=== PATIENT | male | born 1960 | race Caucasian/White ===

== ENCOUNTER 2017-04-10 12:39 | Inpatient (IN) | payer OTHER, SELFPAY ==
[~2017-04-10] VITALS: Ht 167.6 cm; Wt 97.3 kg
[2017-04-10] MEDS ORDERED: SODIUM CHLORIDE FLUSH 10ML SYR IVF ONE (13:00)
[2017-04-10] MEDS ORDERED: SODIUM CHLORIDE 0.9% 1,000ML IVBOLUS ONE (13:00)
[2017-04-10] MEDS ORDERED: CLINDAMYCIN PMX 600MG/50ML 50 ML IV ONE (13:00)
[2017-04-10 13:27] LABS: ASPARTATE AMINO TRANSFERASE 10 U/L (15-37); BLOOD UREA NITROGEN 32 mg/dL (7-18)
[2017-04-10 13:34] LABS: DIFF TOTAL CELLS COUNTED 100 CELL DIFF
[2017-04-10 13:36] LABS: C-REACTIVE PROTEIN, QUANT > 19.00 mg/dL (0.02-0.49); VERIFY COUNTS? YES
[2017-04-10 13:37] LABS: MONOS WITH VACUOLES 1+
[2017-04-10] MEDS ORDERED: ENAL5TAB PO (13:51)
[2017-04-10] MEDS ORDERED: ASPI-496 PO (13:51)
[2017-04-10] MEDS ORDERED: METF500T4 PO (13:51)
[2017-04-10] MEDS ORDERED: CLINDAMYCIN PMX 600MG/50ML 50 ML ONE (14:06)
[2017-04-10] MEDS ORDERED: HYDROmorphone 1 MG/ML, 1ML ONE ×2 (14:13→15:18)
[2017-04-10] MEDS ORDERED: ONDANSETRON 2MG/ML, 2ML ONE (14:13)
[2017-04-10] MEDS: HYDROmorphone 1 MG/ML, 1ML IVPush PRN ×2 (14:56→15:21)
[2017-04-10] MEDS ORDERED: ONDANSETRON 2MG/ML, 2ML IVPush ONE (15:00)
[2017-04-10] MEDS ORDERED: VANCOMYCIN PER PHARMACY MC PRN (16:30)
[2017-04-10] MEDS ORDERED: VANCOMYCIN PMX 1GM/200ML 200 ML IV ONE (16:30)
[2017-04-10 16:43] VITALS: BP 144/82
[2017-04-10] MEDS ORDERED: GLUCAGON 1 MG IM PRN (17:00)
[2017-04-10] MEDS ORDERED: DEXTROSE 50%, 50ML SYRINGE IVPush PRN (17:00)
[2017-04-10] MEDS ORDERED: DEXTROSE 4 GM TAB.CHEW PO PRN (17:00)
[2017-04-10] MEDS ORDERED: PHARMACY MAY ADJ FOR RENAL FX MC PRN (17:00)
[2017-04-10] MEDS ORDERED: PHARMACOKINETIC MONITORING MC PRN (17:00)
[2017-04-10] MEDS ORDERED: ENALAPRILAT 1.25 MG/ML, 2ML IVPush PRN (17:00)
[2017-04-10] MEDS: PIPERACILLIN/TAZO 3.375 GM in SODIUM CHLORIDE 0.9% 50 ML IV SCH ×2 (17:11→23:35)
[2017-04-10] MEDS: SODIUM CHLORIDE 0.9% 1,000 ML IV SCH (17:15)
[2017-04-10] MEDS: ENOXAPARIN 40 MG/0.4 ML SQ SCH (17:15)
[2017-04-10] MEDS ORDERED: VANCOMYCIN 1,600 MG in SODIUM CHLORIDE 0.9% 250 ML IV SCH (17:30)
[2017-04-10] MEDS ORDERED: GADOBUTROL 10 MMOL/10 ML PFS ONE (20:11)
[2017-04-10 20:30] VITALS: BP 147/79
[2017-04-10] MEDS: SODIUM CHLORIDE FLUSH 10ML SYR IVF SCH (20:45)
[2017-04-10] MEDS: INSULIN ASPART 100 UNITS/ML, PEN SQ-INSULIN SCH ×2 (20:47→21:00)
[2017-04-10] MEDS: INSULIN DETEMIR 100 UNITS/ML, PEN SQ-INSULIN SCH (20:48)
[2017-04-10] MEDS ORDERED: INSULIN ASPART 100 UNITS/ML, PEN SQ-INSULIN SCH (21:00)
[2017-04-10] MEDS: HYDROmorphone 2 MG/ML, 1ML IVPush PRN ×2 (22:04→22:36)
[2017-04-11 02:29] VITALS: BP_SYST 153; BP_SYST 166; BP_DIAS 85; BP_DIAS 86
[2017-04-11] MEDS: HYDROmorphone 2 MG/ML, 1ML IVPush PRN ×6 (02:42→21:50)
[2017-04-11] MEDS: PIPERACILLIN/TAZO 3.375 GM in SODIUM CHLORIDE 0.9% 50 ML IV SCH ×4 (05:01→22:51)
[2017-04-11] MEDS: SODIUM CHLORIDE 0.9% 1,000 ML IV SCH ×2 (06:09→16:00)
[2017-04-11 06:58] VITALS: BP 129/81
[2017-04-11 06:59] LABS: ASPARTATE AMINO TRANSFERASE 13 U/L (15-37); BLOOD UREA NITROGEN 33 mg/dL (7-18)
[2017-04-11 07:04] LABS: DIFF TOTAL CELLS COUNTED 100 CELL DIFF
[2017-04-11 07:06] LABS: VERIFY COUNTS? YES
[2017-04-11] MEDS: INSULIN ASPART 100 UNITS/ML, PEN SQ-INSULIN SCH ×4 (08:17→21:49)
[2017-04-11] MEDS: INSULIN DETEMIR 100 UNITS/ML, PEN SQ-INSULIN SCH ×2 (08:17→21:50)
[2017-04-11] MEDS: SODIUM CHLORIDE FLUSH 10ML SYR IVF SCH ×2 (08:20→21:50)
[2017-04-11] MEDS ORDERED: VANCOMYCIN 2,000 MG in SODIUM CHLORIDE 0.9% 250 ML IV SCH (10:00)
[2017-04-11] MEDS: VANCOMYCIN 2,000 MG in SODIUM CHLORIDE 0.9% 500 ML IV SCH (13:19)
[2017-04-11 13:53] VITALS: BP 177/81
[2017-04-11] MEDS: LACTOBACILLUS CHEW TABLET PO SCH ×2 (17:00→21:00)
[2017-04-11] MEDS: ACETYLCYSTEINE 600 MG CAPSULE PO SCH ×2 (17:26→21:49)
[2017-04-11] MEDS: ENOXAPARIN 40 MG/0.4 ML SQ SCH (17:28)
[2017-04-11 17:40] VITALS: BP 145/84
[2017-04-11 17:55] VITALS: BP 128/80
[2017-04-11] MEDS: CLINDAMYCIN PMX 900MG/50ML 50 ML IV SCH (18:26)
[2017-04-11 18:34] LABS: IS PT STATUS REG ER OR PRE ER? NO
[2017-04-11] MEDS: ONDANSETRON 2MG/ML, 2ML IVPush PRN (18:50)
[2017-04-11 20:22] VITALS: BP 147/81
[2017-04-12 01:11] VITALS: BP 181/76
[2017-04-12] MEDS: CLINDAMYCIN PMX 900MG/50ML 50 ML IV SCH ×2 (01:16→10:06)
[2017-04-12] MEDS: PIPERACILLIN/TAZO 3.375 GM in SODIUM CHLORIDE 0.9% 50 ML IV SCH ×4 (05:23→23:58)
[2017-04-12] MEDS: LACTOBACILLUS CHEW TABLET PO SCH ×4 (05:23→21:54)
[2017-04-12 07:02] LABS: ASPARTATE AMINO TRANSFERASE 14 U/L (15-37); BLOOD UREA NITROGEN 37 mg/dL (7-18)
[2017-04-12 07:11] LABS: IS PT STATUS REG ER OR PRE ER? NO
[2017-04-12 07:36] LABS: DIFF TOTAL CELLS COUNTED 100 CELL DIFF
[2017-04-12 07:40] VITALS: BP 143/65
[2017-04-12 07:50] LABS: VERIFY COUNTS? YES
[2017-04-12] MEDS: VANCOMYCIN 2,000 MG in SODIUM CHLORIDE 0.9% 500 ML IV SCH (07:51)
[2017-04-12] MEDS: INSULIN ASPART 100 UNITS/ML, PEN SQ-INSULIN SCH ×4 (07:57→21:00)
[2017-04-12] MEDS: INSULIN DETEMIR 100 UNITS/ML, PEN SQ-INSULIN SCH ×2 (08:06→22:24)
[2017-04-12] MEDS: SODIUM CHLORIDE FLUSH 10ML SYR IVF SCH ×2 (08:06→21:54)
[2017-04-12] MEDS: ACETYLCYSTEINE 600 MG CAPSULE PO SCH ×2 (08:06→21:54)
[2017-04-12 11:14] LABS: IS PT STATUS REG ER OR PRE ER? NO
[2017-04-12 13:08] VITALS: BP 160/85
[2017-04-12] MEDS: ONDANSETRON 2MG/ML, 2ML IVPush PRN (14:42)
[2017-04-12] MEDS ORDERED: FENTANYL PF 250 MCG/5ML ONE (15:27)
[2017-04-12 15:52] LABS: BLOOD UREA NITROGEN 39 mg/dL (7-18)
[2017-04-12] MEDS ORDERED: SUCCINYLCHOLINE 20 MG/ML, 10ML ONE (16:20)
[2017-04-12] MEDS ORDERED: PHENYLEPHRINE 10 MG/ML ONE (16:20)
[2017-04-12] MEDS ORDERED: ETOMIDATE 40 MG/20 ML ONE (16:20)
[2017-04-12] MEDS ORDERED: ONDANSETRON 2MG/ML, 2ML ONE (16:20)
[2017-04-12] MEDS: SODIUM CHLORIDE 0.9% 1,000 ML IV SCH ×2 (16:27→21:55)
[2017-04-12] MEDS ORDERED: PROMETHAZINE 25 MG/ML, 1ML IV PRN (16:30)
[2017-04-12] MEDS ORDERED: METOCLOPRAMIDE 5 MG/ML, 2ML IV PRN (16:30)
[2017-04-12] MEDS ORDERED: OXYcodone 5 MG/5 ML ORAL.SOL UDC PO PRN (16:30)
[2017-04-12] MEDS ORDERED: METOPROLOL 1 MG/ML, 5ML IV PRN (16:30)
[2017-04-12] MEDS ORDERED: ONDANSETRON 2MG/ML, 2ML IVPush PRN (16:30)
[2017-04-12] MEDS ORDERED: hydrALAzine 20 MG/ML, 1ML IV PRN (16:30)
[2017-04-12] MEDS ORDERED: EPHEDRINE 50 MG/ML, 1ML IVPush PRN (16:30)
[2017-04-12] MEDS ORDERED: LABETALOL 5MG/ML, 20ML IV PRN (16:30)
[2017-04-12] MEDS ORDERED: HYDROmorphone 1 MG/ML, 1ML ONE (16:38)
[2017-04-12] MEDS ORDERED: KETAMINE 10 MG/ML, 20ML ONE (16:38)
[2017-04-12] MEDS: ENOXAPARIN 40 MG/0.4 ML SQ SCH (17:00)
[2017-04-12] MEDS: FENTANYL PF 100 MCG/2ML IV PRN ×2 (17:05→17:20)
[2017-04-12] MEDS ORDERED: HYDROmorphone 2 MG/ML, 1ML ONE (17:07)
[2017-04-12] MEDS ORDERED: OXYcodone 5 MG/5 ML ORAL.SOL UDC ONE (17:07)
[2017-04-12] MEDS ORDERED: ACETAMINOPHEN 650 MG/20.3 ML UDC ONE (17:07)
[2017-04-12] MEDS ORDERED: FENTANYL PF 100 MCG/2ML ONE (17:07)
[2017-04-12] MEDS: HYDROmorphone 1 MG/ML, 1ML IV PRN ×6 (17:10→18:49)
[2017-04-12 20:37] VITALS: BP 142/76
[2017-04-13] MEDS: VANCOMYCIN 2,000 MG in SODIUM CHLORIDE 0.9% 500 ML IV SCH (02:04)
[2017-04-13 02:30] VITALS: BP 138/83
[2017-04-13 02:51] VITALS: BP 143/78
[2017-04-13] MEDS: PIPERACILLIN/TAZO 3.375 GM in SODIUM CHLORIDE 0.9% 50 ML IV SCH ×4 (05:30→22:45)
[2017-04-13 05:51] LABS: BLOOD UREA NITROGEN 46 mg/dL (7-18)
[2017-04-13] MEDS: LACTOBACILLUS CHEW TABLET PO SCH ×4 (06:00→21:20)
[2017-04-13] MEDS: INSULIN ASPART 100 UNITS/ML, PEN SQ-INSULIN SCH ×4 (07:00→21:42)
[2017-04-13 08:15] VITALS: BP 166/80
[2017-04-13] MEDS ORDERED: PHARMACY MAY ADJ FOR RENAL FX MC PRN (08:30)
[2017-04-13] MEDS: SODIUM CHLORIDE 0.9% 1,000 ML IV SCH ×2 (08:36→14:40)
[2017-04-13] MEDS: INSULIN DETEMIR 100 UNITS/ML, PEN SQ-INSULIN SCH ×3 (08:37→21:42)
[2017-04-13] MEDS: SODIUM CHLORIDE FLUSH 10ML SYR IVF SCH ×2 (08:37→21:21)
[2017-04-13] MEDS: HYDROmorphone 2 MG/ML, 1ML IVPush PRN ×3 (08:45→21:42)
[2017-04-13 12:39] VITALS: BP 166/76
[2017-04-13 19:25] VITALS: BP_SYST 191; BP_SYST 195; BP_DIAS 78; BP_DIAS 79
[2017-04-13] MEDS ORDERED: DEXTROSE 50%, 50ML SYRINGE IVPush PRN (21:00)
[2017-04-13] MEDS ORDERED: DEXTROSE 4 GM TAB.CHEW PO PRN (21:00)
[2017-04-13] MEDS ORDERED: GLUCAGON 1 MG IM PRN (21:00)
[2017-04-13] MEDS: ENOXAPARIN 30 MG/0.3 ML SQ SCH (21:21)
[2017-04-13] MEDS: ENALAPRILAT 1.25 MG/ML, 2ML IVPush PRN (21:22)
[2017-04-13] MEDS: ONDANSETRON 2MG/ML, 2ML IVPush PRN (21:49)
[2017-04-13 22:44] VITALS: BP 152/70
[2017-04-14] VITALS (8 sets, daily range): BP systolic 152–218; BP diastolic 61–89
[2017-04-14] MEDS: SODIUM CHLORIDE 0.9% 1,000 ML IV SCH ×3 (01:02→16:16)
[2017-04-14] MEDS: ONDANSETRON 2MG/ML, 2ML IVPush PRN ×2 (03:57→12:37)
[2017-04-14] MEDS: PIPERACILLIN/TAZO 3.375 GM in SODIUM CHLORIDE 0.9% 50 ML IV SCH (05:13)
[2017-04-14] MEDS: LACTOBACILLUS CHEW TABLET PO SCH ×4 (05:51→20:45)
[2017-04-14] MEDS: HYDROmorphone 2 MG/ML, 1ML IVPush PRN ×2 (06:12→20:37)
[2017-04-14] MEDS: INSULIN DETEMIR 100 UNITS/ML, PEN SQ-INSULIN SCH ×2 (07:53→20:43)
[2017-04-14] MEDS: INSULIN ASPART 100 UNITS/ML, PEN SQ-INSULIN SCH ×4 (07:54→20:44)
[2017-04-14] MEDS: SODIUM CHLORIDE FLUSH 10ML SYR IVF SCH ×2 (07:54→20:42)
[2017-04-14 09:17] LABS: BLOOD UREA NITROGEN 43 mg/dL (7-18)
[2017-04-14] MEDS ORDERED: PHARMACY INSTRUCTION MC PRN (11:00)
[2017-04-14] MEDS ORDERED: CEFAZOLIN 0 MG in SODIUM CHLORIDE 0.9% 50 ML IV SCH (11:00)
[2017-04-14] MEDS ORDERED: CEFAZOLIN PMX 1GM/50ML 50 ML IVPB SCH (11:30)
[2017-04-14] MEDS ORDERED: CEFAZOLIN PMX 2GM/50ML 50 ML IVPB SCH (11:30)
[2017-04-14] MEDS: AMLODIPINE 5 MG TABLET PO SCH (11:43)
[2017-04-14 15:01] LABS: BLOOD UREA NITROGEN 41 mg/dL (7-18)
[2017-04-14] MEDS: ENALAPRILAT 1.25 MG/ML, 2ML IVPush PRN (16:16)
[2017-04-14] MEDS ORDERED: MIDAZOLAM 1 MG/ML, 2ML ONE (18:28)
[2017-04-14] MEDS ORDERED: FENTANYL PF 250 MCG/5ML ONE (18:28)
[2017-04-14] MEDS ORDERED: ONDANSETRON 2MG/ML, 2ML ONE (18:30)
[2017-04-14] MEDS ORDERED: PROPOFOL 10 MG/ML, 20ML ONE (18:30)
[2017-04-14] MEDS ORDERED: EPHEDRINE 50 MG/ML, 1ML IVPush PRN (19:00)
[2017-04-14] MEDS ORDERED: HYDROmorphone 1 MG/ML, 1ML IV PRN (19:00)
[2017-04-14] MEDS ORDERED: LABETALOL 5MG/ML, 20ML IV PRN (19:00)
[2017-04-14] MEDS ORDERED: METOPROLOL 1 MG/ML, 5ML IV PRN (19:00)
[2017-04-14] MEDS ORDERED: METOCLOPRAMIDE 5 MG/ML, 2ML IV PRN (19:00)
[2017-04-14] MEDS ORDERED: ONDANSETRON 2MG/ML, 2ML IVPush PRN (19:00)
[2017-04-14] MEDS ORDERED: PROMETHAZINE 25 MG/ML, 1ML IV PRN (19:00)
[2017-04-14] MEDS ORDERED: FENTANYL PF 100 MCG/2ML IV PRN (19:00)
[2017-04-14] MEDS ORDERED: hydrALAzine 20 MG/ML, 1ML IV PRN (19:00)
[2017-04-14] MEDS: ENOXAPARIN 30 MG/0.3 ML SQ SCH (20:37)
[2017-04-14] MEDS: CEFAZOLIN PMX 1GM/50ML 50 ML IVPB SCH (20:37)
[2017-04-14] MEDS ORDERED: LABETALOL 5MG/ML, 20ML IVPush ONE (21:30)
[2017-04-15 00:25] VITALS: BP 153/79
[2017-04-15] MEDS: SODIUM CHLORIDE 0.9% 1,000 ML IV SCH ×4 (02:58→22:35)
[2017-04-15] MEDS: CEFAZOLIN PMX 1GM/50ML 50 ML IVPB SCH ×3 (04:43→20:02)
[2017-04-15 05:27] VITALS: BP 183/80
[2017-04-15] MEDS: ENALAPRILAT 1.25 MG/ML, 2ML IVPush PRN ×3 (06:07→22:36)
[2017-04-15] MEDS: ONDANSETRON 2MG/ML, 2ML IVPush PRN (06:15)
[2017-04-15] MEDS: LACTOBACILLUS CHEW TABLET PO SCH ×4 (06:34→21:44)
[2017-04-15 07:20] LABS: BLOOD UREA NITROGEN 34 mg/dL (7-18)
[2017-04-15 07:25] VITALS: BP 190/74
[2017-04-15] MEDS: SODIUM CHLORIDE FLUSH 10ML SYR IVF SCH ×2 (07:51→21:44)
[2017-04-15] MEDS: INSULIN ASPART 100 UNITS/ML, PEN SQ-INSULIN SCH ×4 (08:14→21:45)
[2017-04-15] MEDS: INSULIN DETEMIR 100 UNITS/ML, PEN SQ-INSULIN SCH ×2 (08:52→21:46)
[2017-04-15] MEDS: AMLODIPINE 5 MG TABLET PO SCH (08:52)
[2017-04-15 11:05] VITALS: BP 168/74
[2017-04-15 12:30] VITALS: BP 168/84
[2017-04-15] MEDS ORDERED: INSULIN ASPART 100 UNITS/ML, PEN SQ-INSULIN SCH (17:00)
[2017-04-15] MEDS: ENOXAPARIN 40 MG/0.4 ML SQ SCH (17:13)
[2017-04-15 19:15] VITALS: BP 183/80
[2017-04-16 02:51] VITALS: BP 181/79
[2017-04-16] MEDS: HYDROmorphone 2 MG/ML, 1ML IVPush PRN (03:07)
[2017-04-16] MEDS: ONDANSETRON 2MG/ML, 2ML IVPush PRN (03:12)
[2017-04-16] MEDS: CEFAZOLIN PMX 1GM/50ML 50 ML IVPB SCH ×3 (05:00→22:40)
[2017-04-16] MEDS: LACTOBACILLUS CHEW TABLET PO SCH ×5 (06:47→22:40)
[2017-04-16] MEDS: SODIUM CHLORIDE 0.9% 1,000 ML IV SCH ×3 (06:47→17:43)
[2017-04-16] MEDS: INSULIN ASPART 100 UNITS/ML, PEN SQ-INSULIN SCH ×4 (06:55→22:41)
[2017-04-16 09:15] VITALS: BP 192/87
[2017-04-16] MEDS: OXYcodone IR 5MG TABLET PO PRN ×2 (09:46→15:02)
[2017-04-16] MEDS: AMLODIPINE 5 MG TABLET PO SCH ×2 (09:46→22:40)
[2017-04-16] MEDS: INSULIN DETEMIR 100 UNITS/ML, PEN SQ-INSULIN SCH ×2 (09:47→22:41)
[2017-04-16] MEDS: SODIUM CHLORIDE FLUSH 10ML SYR IVF SCH (09:49)
[2017-04-16] MEDS ORDERED: PROMETHAZINE 25 MG/ML, 1ML ONE (10:20)
[2017-04-16] MEDS: PROMETHAZINE 25 MG/ML, 1ML IM PRN (10:22)
[2017-04-16] MEDS ORDERED: LABETALOL 5MG/ML, 20ML IVPush PRN (10:30)
[2017-04-16 10:55] LABS: BLOOD UREA NITROGEN 27 mg/dL (7-18)
[2017-04-16 12:35] VITALS: BP 197/97
[2017-04-16] MEDS: ENALAPRILAT 1.25 MG/ML, 2ML IVPush PRN (13:09)
[2017-04-16 15:12] VITALS: BP 168/79
[2017-04-16] MEDS: ENOXAPARIN 40 MG/0.4 ML SQ SCH (16:30)
[2017-04-16 21:59] VITALS: BP 171/76
[2017-04-17 02:25] VITALS: BP 189/80
[2017-04-17] MEDS: SODIUM CHLORIDE 0.9% 1,000 ML IV SCH ×3 (04:07→23:15)
[2017-04-17 04:09] VITALS: BP 176/76
[2017-04-17] MEDS: LACTOBACILLUS CHEW TABLET PO SCH ×3 (05:39→17:29)
[2017-04-17] MEDS: CEFAZOLIN PMX 1GM/50ML 50 ML IVPB SCH (05:39)
[2017-04-17 06:09] LABS: BLOOD UREA NITROGEN 24 mg/dL (7-18)
[2017-04-17] MEDS: INSULIN ASPART 100 UNITS/ML, PEN SQ-INSULIN SCH ×4 (06:42→23:13)
[2017-04-17] MEDS ORDERED: FENTANYL PF 250 MCG/5ML ONE (07:16)
[2017-04-17] MEDS ORDERED: MIDAZOLAM 1 MG/ML, 2ML ONE (07:16)
[2017-04-17] MEDS ORDERED: ACETAMINOPHEN 325 MG TABLET PO PRN (07:30)
[2017-04-17] MEDS ORDERED: ONDANSETRON 2MG/ML, 2ML IVPush PRN (07:30)
[2017-04-17] MEDS ORDERED: HYDROmorphone 1 MG/ML, 1ML IV PRN (07:30)
[2017-04-17] MEDS ORDERED: MEPERIDINE/PF 25MG/0.5ML IVPush PRN (07:30)
[2017-04-17] MEDS ORDERED: OXYcodone 5 MG/5 ML ORAL.SOL UDC PO PRN (07:30)
[2017-04-17] MEDS ORDERED: ONDANSETRON 2MG/ML, 2ML ONE ×2 (07:40→08:43)
[2017-04-17] MEDS ORDERED: PROPOFOL 10 MG/ML, 20ML ONE (07:40)
[2017-04-17] MEDS ORDERED: FENTANYL PF 100 MCG/2ML ONE (08:28)
[2017-04-17] MEDS ORDERED: OXYcodone 5 MG/5 ML ORAL.SOL UDC ONE (08:28)
[2017-04-17] MEDS ORDERED: ACETAMINOPHEN 650 MG/20.3 ML UDC ONE (08:28)
[2017-04-17] MEDS: LABETALOL 5MG/ML, 20ML IV PRN ×3 (08:53→09:23)
[2017-04-17] MEDS: FENTANYL PF 100 MCG/2ML IV PRN ×4 (08:57→09:26)
[2017-04-17 10:15] VITALS: BP 171/80
[2017-04-17 11:15] VITALS: BP 149/77
[2017-04-17] MEDS: INSULIN DETEMIR 100 UNITS/ML, PEN SQ-INSULIN SCH ×2 (12:27→23:12)
[2017-04-17] MEDS: AMLODIPINE 5 MG TABLET PO SCH ×2 (12:28→20:58)
[2017-04-17] MEDS: CEFAZOLIN PMX 2GM/50ML 50 ML IV SCH ×2 (14:31→23:12)
[2017-04-17 14:46] VITALS: BP 167/82
[2017-04-17] MEDS: ENOXAPARIN 40 MG/0.4 ML SQ SCH (17:29)
[2017-04-17 19:42] VITALS: BP 168/85
[2017-04-17] MEDS: PROMETHAZINE 25 MG/ML, 1ML IM PRN (19:57)
[2017-04-17] MEDS: ONDANSETRON 2MG/ML, 2ML IVPush PRN (23:23)
[2017-04-18] MEDS: LACTOBACILLUS CHEW TABLET PO SCH ×5 (00:54→22:25)
[2017-04-18] MEDS: OXYcodone IR 5MG TABLET PO PRN (01:09)
[2017-04-18] MEDS: SODIUM CHLORIDE 0.9% 1,000 ML IV SCH ×3 (05:28→22:25)
[2017-04-18 05:39] VITALS: BP 143/83
[2017-04-18 06:05] LABS: BLOOD UREA NITROGEN 16 mg/dL (7-18)
[2017-04-18] MEDS: CEFAZOLIN PMX 2GM/50ML 50 ML IV SCH ×3 (06:38→22:25)
[2017-04-18 06:43] VITALS: BP 160/69
[2017-04-18] MEDS: INSULIN ASPART 100 UNITS/ML, PEN SQ-INSULIN SCH ×4 (07:50→22:59)
[2017-04-18] MEDS: ONDANSETRON 2MG/ML, 2ML IVPush PRN ×2 (07:57→19:53)
[2017-04-18] MEDS: AMLODIPINE 5 MG TABLET PO SCH ×2 (07:57→22:25)
[2017-04-18] MEDS: INSULIN DETEMIR 100 UNITS/ML, PEN SQ-INSULIN SCH ×2 (07:58→22:59)
[2017-04-18 16:01] VITALS: BP 135/68
[2017-04-18] MEDS: ENOXAPARIN 40 MG/0.4 ML SQ SCH (17:01)
[2017-04-18 19:49] VITALS: BP 157/83
[2017-04-19] MEDS: CLOTRIMAZOLE CRM 1%, 15GM TP SCH (03:00)
[2017-04-19 04:02] VITALS: BP 164/76
[2017-04-19] MEDS: PROMETHAZINE 25 MG/ML, 1ML IM PRN ×3 (04:06→23:15)
[2017-04-19 06:18] LABS: BLOOD UREA NITROGEN 13 mg/dL (7-18)
[2017-04-19] MEDS: CEFAZOLIN PMX 2GM/50ML 50 ML IV SCH ×3 (06:41→22:39)
[2017-04-19] MEDS: LACTOBACILLUS CHEW TABLET PO SCH ×4 (06:47→21:37)
[2017-04-19] MEDS: INSULIN ASPART 100 UNITS/ML, PEN SQ-INSULIN SCH ×4 (07:00→21:37)
[2017-04-19 07:57] VITALS: BP 134/68
[2017-04-19] MEDS: AMLODIPINE 5 MG TABLET PO SCH ×2 (08:00→21:37)
[2017-04-19] MEDS: INSULIN DETEMIR 100 UNITS/ML, PEN SQ-INSULIN SCH ×2 (08:01→21:37)
[2017-04-19 13:47] VITALS: BP 137/71
[2017-04-19] MEDS: ENOXAPARIN 40 MG/0.4 ML SQ SCH (16:29)
[2017-04-19] MEDS: SODIUM CHLORIDE 0.9% 1,000 ML IV SCH (21:37)
[2017-04-20 03:00] VITALS: BP 134/66
[2017-04-20 06:17] LABS: BLOOD UREA NITROGEN 13 mg/dL (7-18)
[2017-04-20] MEDS: CLOTRIMAZOLE CRM 1%, 15GM TP SCH ×2 (06:28→17:11)
[2017-04-20] MEDS: CEFAZOLIN PMX 2GM/50ML 50 ML IV SCH ×3 (06:36→22:34)
[2017-04-20] MEDS: LACTOBACILLUS CHEW TABLET PO SCH ×4 (06:44→20:03)
[2017-04-20] MEDS: INSULIN ASPART 100 UNITS/ML, PEN SQ-INSULIN SCH ×4 (07:12→19:59)
[2017-04-20] MEDS: SODIUM CHLORIDE 0.9% 1,000 ML IV SCH (07:13)
[2017-04-20 08:55] VITALS: BP 132/65
[2017-04-20] MEDS: PROMETHAZINE 25 MG/ML, 1ML IM PRN (09:00)
[2017-04-20] MEDS: AMLODIPINE 5 MG TABLET PO SCH ×2 (09:48→20:03)
[2017-04-20] MEDS: INSULIN DETEMIR 100 UNITS/ML, PEN SQ-INSULIN SCH ×2 (09:49→20:03)
[2017-04-20 12:55] VITALS: BP 124/69
[2017-04-20] MEDS: OXYcodone IR 5MG TABLET PO PRN (13:52)
[2017-04-20] MEDS: ONDANSETRON 2MG/ML, 2ML IVPush PRN (13:52)
[2017-04-20] MEDS: ENOXAPARIN 40 MG/0.4 ML SQ SCH (17:11)
[2017-04-20 19:53] VITALS: BP 134/71
[2017-04-21 00:30] VITALS: BP 139/75
[2017-04-21] MEDS: LACTOBACILLUS CHEW TABLET PO SCH ×4 (06:00→19:54)
[2017-04-21] MEDS: CEFAZOLIN PMX 2GM/50ML 50 ML IV SCH ×3 (06:24→22:52)
[2017-04-21] MEDS: INSULIN ASPART 100 UNITS/ML, PEN SQ-INSULIN SCH ×4 (07:00→19:48)
[2017-04-21 08:25] VITALS: BP 135/70
[2017-04-21] MEDS: CLOTRIMAZOLE CRM 1%, 15GM TP SCH ×2 (08:32→19:55)
[2017-04-21] MEDS: AMLODIPINE 5 MG TABLET PO SCH ×2 (08:32→19:54)
[2017-04-21] MEDS: INSULIN DETEMIR 100 UNITS/ML, PEN SQ-INSULIN SCH ×2 (09:00→19:54)
[2017-04-21 13:20] VITALS: BP 140/71
[2017-04-21] MEDS: DIPHENHYDRAMINE 25 MG CAPSULE PO PRN (14:21)
[2017-04-21] MEDS: ENOXAPARIN 40 MG/0.4 ML SQ SCH (17:07)
[2017-04-21 19:41] VITALS: BP 139/72
[2017-04-22 00:36] VITALS: BP 138/64
[2017-04-22] MEDS: LACTOBACILLUS CHEW TABLET PO SCH ×4 (06:15→20:41)
[2017-04-22] MEDS: CEFAZOLIN PMX 2GM/50ML 50 ML IV SCH ×2 (06:15→14:10)
[2017-04-22] MEDS: DIPHENHYDRAMINE 25 MG CAPSULE PO PRN (06:25)
[2017-04-22 06:40] VITALS: BP 123/74
[2017-04-22] MEDS: INSULIN ASPART 100 UNITS/ML, PEN SQ-INSULIN SCH ×4 (07:42→21:21)
[2017-04-22] MEDS: AMLODIPINE 5 MG TABLET PO SCH ×2 (09:22→20:42)
[2017-04-22] MEDS: INSULIN DETEMIR 100 UNITS/ML, PEN SQ-INSULIN SCH ×2 (09:23→21:20)
[2017-04-22] MEDS: CLOTRIMAZOLE CRM 1%, 15GM TP SCH ×2 (09:24→21:00)
[2017-04-22 12:45] VITALS: BP 126/71
[2017-04-22] MEDS: ENOXAPARIN 40 MG/0.4 ML SQ SCH (16:49)
[2017-04-22] MEDS: CEPHALEXIN 500 MG CAPSULE PO SCH ×2 (18:35→20:40)
[2017-04-22 20:45] VITALS: BP 121/58
[2017-04-23 02:43] VITALS: BP 112/69
[2017-04-23 05:13] LABS: BLOOD UREA NITROGEN 12 mg/dL (7-18)
[2017-04-23] MEDS: LACTOBACILLUS CHEW TABLET PO SCH ×4 (05:35→21:19)
[2017-04-23] MEDS: INSULIN ASPART 100 UNITS/ML, PEN SQ-INSULIN SCH ×4 (06:52→21:00)
[2017-04-23 07:20] VITALS: BP 123/67
[2017-04-23] MEDS: INSULIN DETEMIR 100 UNITS/ML, PEN SQ-INSULIN SCH ×2 (09:14→21:28)
[2017-04-23] MEDS: CEPHALEXIN 500 MG CAPSULE PO SCH ×3 (09:15→21:20)
[2017-04-23] MEDS: AMLODIPINE 5 MG TABLET PO SCH ×2 (09:15→21:20)
[2017-04-23] MEDS: CLOTRIMAZOLE CRM 1%, 15GM TP SCH ×2 (09:15→21:00)
[2017-04-23] MEDS: DIPHENHYDRAMINE 25 MG CAPSULE PO PRN (14:44)
[2017-04-23 15:55] VITALS: BP 124/54
[2017-04-23] MEDS: ENOXAPARIN 40 MG/0.4 ML SQ SCH (16:55)
[2017-04-23 20:26] VITALS: BP 130/70
[2017-04-24 04:59] VITALS: BP 123/64
[2017-04-24 05:28] LABS: BLOOD UREA NITROGEN 10 mg/dL (7-18)
[2017-04-24] MEDS: LACTOBACILLUS CHEW TABLET PO SCH ×4 (06:05→22:02)
[2017-04-24] MEDS: INSULIN ASPART 100 UNITS/ML, PEN SQ-INSULIN SCH ×4 (06:07→22:02)
[2017-04-24 08:09] VITALS: BP 124/66
[2017-04-24] MEDS: INSULIN DETEMIR 100 UNITS/ML, PEN SQ-INSULIN SCH ×2 (09:00→22:03)
[2017-04-24] MEDS: CLOTRIMAZOLE CRM 1%, 15GM TP SCH ×2 (09:00→22:29)
[2017-04-24] MEDS: CEPHALEXIN 500 MG CAPSULE PO SCH ×3 (09:36→22:02)
[2017-04-24] MEDS: AMLODIPINE 5 MG TABLET PO SCH ×2 (09:36→22:02)
[2017-04-24 14:53] VITALS: BP 114/63
[2017-04-24] MEDS: ENOXAPARIN 40 MG/0.4 ML SQ SCH (17:26)
[2017-04-24 19:05] VITALS: BP 129/73
[2017-04-24 19:06] LABS: HGB A1C 10.4 %Hb (.)
[2017-04-25 02:32] VITALS: BP 124/65
[2017-04-25 05:37] LABS: BLOOD UREA NITROGEN 11 mg/dL (7-18)
[2017-04-25] MEDS: LACTOBACILLUS CHEW TABLET PO SCH ×4 (06:24→20:47)
[2017-04-25] MEDS: INSULIN ASPART 100 UNITS/ML, PEN SQ-INSULIN SCH ×4 (07:21→21:04)
[2017-04-25 08:25] VITALS: BP 112/72
[2017-04-25] MEDS: CLOTRIMAZOLE CRM 1%, 15GM TP SCH ×2 (09:12→20:48)
[2017-04-25] MEDS: INSULIN DETEMIR 100 UNITS/ML, PEN SQ-INSULIN SCH ×2 (09:12→21:04)
[2017-04-25] MEDS: AMLODIPINE 5 MG TABLET PO SCH ×2 (09:12→20:47)
[2017-04-25] MEDS: CEPHALEXIN 500 MG CAPSULE PO SCH (09:12)
[2017-04-25] MEDS: ERGOCALCIFEROL 50,000 UNIT CAPSULE PO SCH (11:07)
[2017-04-25] MEDS ORDERED: CEFAZOLIN 1,000 MG IM SCH (12:30)
[2017-04-25] MEDS: CEFAZOLIN PMX 2GM/50ML 50 ML IVPB SCH ×2 (13:29→20:48)
[2017-04-25 15:16] VITALS: BP 112/76
[2017-04-25] MEDS: ENOXAPARIN 40 MG/0.4 ML SQ SCH (16:33)
[2017-04-25 19:32] VITALS: BP 131/71
[2017-04-25] MEDS ORDERED: CEFAZOLIN 1,000 MG IV SCH (20:30)
[2017-04-26 01:33] VITALS: BP 115/65
[2017-04-26] MEDS: CEFAZOLIN PMX 2GM/50ML 50 ML IVPB SCH ×3 (04:56→21:42)
[2017-04-26] MEDS: LACTOBACILLUS CHEW TABLET PO SCH ×4 (05:14→21:42)
[2017-04-26 05:16] LABS: BLOOD UREA NITROGEN 11 mg/dL (7-18)
[2017-04-26 05:19] LABS: ASPARTATE AMINO TRANSFERASE 26 U/L (15-37)
[2017-04-26] MEDS: INSULIN ASPART 100 UNITS/ML, PEN SQ-INSULIN SCH ×4 (07:00→21:59)
[2017-04-26 08:07] VITALS: BP 138/76
[2017-04-26] MEDS: AMLODIPINE 5 MG TABLET PO SCH ×3 (09:00→21:42)
[2017-04-26] MEDS: INSULIN DETEMIR 100 UNITS/ML, PEN SQ-INSULIN SCH ×2 (09:00→21:59)
[2017-04-26] MEDS: CLOTRIMAZOLE CRM 1%, 15GM TP SCH ×2 (10:02→21:43)
[2017-04-26 15:26] VITALS: BP 110/66
[2017-04-26] MEDS: ENOXAPARIN 40 MG/0.4 ML SQ SCH (16:13)
[2017-04-26 20:10] VITALS: BP 133/62
[2017-04-27 02:30] VITALS: BP 109/60
[2017-04-27] MEDS: LACTOBACILLUS CHEW TABLET PO SCH ×4 (05:05→20:52)
[2017-04-27] MEDS: CEFAZOLIN PMX 2GM/50ML 50 ML IVPB SCH ×3 (05:05→22:16)
[2017-04-27 07:11] LABS: BLOOD UREA NITROGEN 13 mg/dL (7-18)
[2017-04-27] MEDS: INSULIN ASPART 100 UNITS/ML, PEN SQ-INSULIN SCH ×4 (07:13→21:18)
[2017-04-27 07:47] VITALS: BP 123/71
[2017-04-27] MEDS: INSULIN DETEMIR 100 UNITS/ML, PEN SQ-INSULIN SCH ×2 (07:49→21:17)
[2017-04-27] MEDS: CLOTRIMAZOLE CRM 1%, 15GM TP SCH ×2 (07:49→20:52)
[2017-04-27] MEDS: AMLODIPINE 5 MG TABLET PO SCH ×2 (07:49→20:52)
[2017-04-27 14:58] VITALS: BP 111/62
[2017-04-27] MEDS: ENOXAPARIN 40 MG/0.4 ML SQ SCH (16:35)
[2017-04-27 19:54] VITALS: BP 135/78
[2017-04-28 01:30] VITALS: BP 127/72
[2017-04-28] MEDS: CEFAZOLIN PMX 2GM/50ML 50 ML IVPB SCH ×3 (06:13→22:15)
[2017-04-28] MEDS: INSULIN ASPART 100 UNITS/ML, PEN SQ-INSULIN SCH ×4 (06:20→20:54)
[2017-04-28 06:31] LABS: BLOOD UREA NITROGEN 12 mg/dL (7-18)
[2017-04-28] MEDS: LACTOBACILLUS CHEW TABLET PO SCH ×4 (06:31→20:45)
[2017-04-28 07:24] VITALS: BP 124/70
[2017-04-28] MEDS: INSULIN DETEMIR 100 UNITS/ML, PEN SQ-INSULIN SCH ×2 (08:30→20:54)
[2017-04-28] MEDS: CLOTRIMAZOLE CRM 1%, 15GM TP SCH ×3 (08:30→20:45)
[2017-04-28] MEDS: AMLODIPINE 5 MG TABLET PO SCH ×2 (08:30→20:45)
[2017-04-28] MEDS: POTASSIUM CHLORIDE 20 MEQ TAB.ER.PRT PO SCH ×2 (12:05→16:06)
[2017-04-28 12:39] VITALS: BP 112/70
[2017-04-28] MEDS: ENOXAPARIN 40 MG/0.4 ML SQ SCH (16:06)
[2017-04-28 21:47] VITALS: BP 125/75
[2017-04-29 02:12] VITALS: BP 123/57
[2017-04-29] MEDS: LACTOBACILLUS CHEW TABLET PO SCH ×4 (05:34→21:02)
[2017-04-29] MEDS: CEFAZOLIN PMX 2GM/50ML 50 ML IVPB SCH ×3 (05:34→21:02)
[2017-04-29 06:20] LABS: BLOOD UREA NITROGEN 12 mg/dL (7-18)
[2017-04-29] MEDS: INSULIN ASPART 100 UNITS/ML, PEN SQ-INSULIN SCH ×4 (06:47→21:02)
[2017-04-29 07:32] VITALS: BP 138/75
[2017-04-29] MEDS: AMLODIPINE 5 MG TABLET PO SCH ×2 (07:47→21:02)
[2017-04-29] MEDS: CLOTRIMAZOLE CRM 1%, 15GM TP SCH ×2 (07:47→21:00)
[2017-04-29] MEDS: POTASSIUM CHLORIDE 20 MEQ TAB.ER.PRT PO SCH (07:47)
[2017-04-29] MEDS: INSULIN DETEMIR 100 UNITS/ML, PEN SQ-INSULIN SCH ×2 (07:48→21:03)
[2017-04-29 13:40] VITALS: BP 118/70
[2017-04-29] MEDS: ENOXAPARIN 40 MG/0.4 ML SQ SCH (16:54)
[2017-04-29 19:04] VITALS: BP 140/76
[2017-04-30 02:24] VITALS: BP 139/75
[2017-04-30] MEDS: LACTOBACILLUS CHEW TABLET PO SCH ×4 (05:53→22:35)
[2017-04-30] MEDS: CEFAZOLIN PMX 2GM/50ML 50 ML IVPB SCH ×3 (05:53→22:37)
[2017-04-30] MEDS: INSULIN ASPART 100 UNITS/ML, PEN SQ-INSULIN SCH ×4 (06:16→22:36)
[2017-04-30] MEDS: CLOTRIMAZOLE CRM 1%, 15GM TP SCH ×2 (09:00→21:00)
[2017-04-30 09:45] VITALS: BP 107/59
[2017-04-30] MEDS: AMLODIPINE 5 MG TABLET PO SCH ×2 (09:52→22:35)
[2017-04-30] MEDS: INSULIN DETEMIR 100 UNITS/ML, PEN SQ-INSULIN SCH ×2 (09:52→22:58)
[2017-04-30 13:43] VITALS: BP 116/68
[2017-04-30] MEDS: ENOXAPARIN 40 MG/0.4 ML SQ SCH (17:04)
[2017-04-30 19:52] VITALS: BP 143/85
[2017-05-01 03:00] VITALS: BP 147/89
[2017-05-01] MEDS: CEFAZOLIN PMX 2GM/50ML 50 ML IVPB SCH ×3 (06:31→21:52)
[2017-05-01] MEDS: LACTOBACILLUS CHEW TABLET PO SCH ×4 (06:31→20:34)
[2017-05-01] MEDS: INSULIN ASPART 100 UNITS/ML, PEN SQ-INSULIN SCH ×4 (07:00→20:33)
[2017-05-01 07:02] LABS: BLOOD UREA NITROGEN 17 mg/dL (7-18)
[2017-05-01 07:43] VITALS: BP 140/79
[2017-05-01] MEDS: CLOTRIMAZOLE CRM 1%, 15GM TP SCH ×2 (08:42→20:34)
[2017-05-01] MEDS: AMLODIPINE 5 MG TABLET PO SCH ×2 (08:47→20:34)
[2017-05-01] MEDS: INSULIN DETEMIR 100 UNITS/ML, PEN SQ-INSULIN SCH ×2 (08:48→20:33)
[2017-05-01 13:39] VITALS: BP 134/75
[2017-05-01] MEDS: ENOXAPARIN 40 MG/0.4 ML SQ SCH (16:39)
[2017-05-01 19:34] VITALS: BP 149/83
[2017-05-02 03:16] VITALS: BP 130/87
[2017-05-02] MEDS: LACTOBACILLUS CHEW TABLET PO SCH ×3 (06:00→20:25)
[2017-05-02] MEDS: CEFAZOLIN PMX 2GM/50ML 50 ML IVPB SCH ×3 (06:00→21:55)
[2017-05-02 07:28] LABS: BLOOD UREA NITROGEN 16 mg/dL (7-18)
[2017-05-02] MEDS: AMLODIPINE 5 MG TABLET PO SCH ×2 (08:45→20:25)
[2017-05-02] MEDS: ERGOCALCIFEROL 50,000 UNIT CAPSULE PO SCH (08:45)
[2017-05-02] MEDS: INSULIN ASPART 100 UNITS/ML, PEN SQ-INSULIN SCH ×3 (11:00→23:00)
[2017-05-02] MEDS: INSULIN DETEMIR 100 UNITS/ML, PEN SQ-INSULIN SCH ×2 (11:50→23:50)
[2017-05-02] MEDS: ENOXAPARIN 40 MG/0.4 ML SQ SCH (16:50)
[2017-05-02] MEDS: CLOTRIMAZOLE CRM 1%, 15GM TP SCH (21:00)
[2017-05-03] MEDS: LACTOBACILLUS CHEW TABLET PO SCH ×5 (06:00→21:40)
[2017-05-03] MEDS: CEFAZOLIN PMX 2GM/50ML 50 ML IVPB SCH ×3 (06:00→21:59)
[2017-05-03 06:50] VITALS: BP 144/76
[2017-05-03] MEDS: INSULIN ASPART 100 UNITS/ML, PEN SQ-INSULIN SCH ×4 (07:00→21:00)
[2017-05-03] MEDS: INSULIN DETEMIR 100 UNITS/ML, PEN SQ-INSULIN SCH ×2 (09:00→21:39)
[2017-05-03] MEDS: CLOTRIMAZOLE CRM 1%, 15GM TP SCH ×2 (09:00→21:40)
[2017-05-03] MEDS: AMLODIPINE 5 MG TABLET PO SCH ×2 (09:10→21:40)
[2017-05-03 13:43] VITALS: BP 138/88
[2017-05-03] MEDS: ENOXAPARIN 40 MG/0.4 ML SQ SCH (17:00)
[2017-05-03 20:18] VITALS: BP 145/87
[2017-05-04 02:06] VITALS: BP 133/72
[2017-05-04] MEDS: CEFAZOLIN PMX 2GM/50ML 50 ML IVPB SCH ×3 (05:54→21:45)
[2017-05-04] MEDS: LACTOBACILLUS CHEW TABLET PO SCH ×4 (05:54→20:29)
[2017-05-04 06:50] VITALS: BP 146/77
[2017-05-04] MEDS: INSULIN ASPART 100 UNITS/ML, PEN SQ-INSULIN SCH ×4 (07:28→21:00)
[2017-05-04] MEDS: INSULIN DETEMIR 100 UNITS/ML, PEN SQ-INSULIN SCH ×2 (09:00→21:44)
[2017-05-04] MEDS: CLOTRIMAZOLE CRM 1%, 15GM TP SCH ×2 (10:12→21:00)
[2017-05-04] MEDS: AMLODIPINE 5 MG TABLET PO SCH ×2 (10:12→20:29)
[2017-05-04 12:32] VITALS: BP 154/90
[2017-05-04] MEDS ORDERED: MIDAZOLAM 1 MG/ML, 2ML ONE (13:48)
[2017-05-04] MEDS ORDERED: KETAMINE 10 MG/ML, 20ML ONE (13:48)
[2017-05-04] MEDS ORDERED: FENTANYL PF 250 MCG/5ML ONE (13:48)
[2017-05-04] MEDS ORDERED: PROPOFOL 10 MG/ML, 20ML ONE (14:06)
[2017-05-04] MEDS ORDERED: ACETAMINOPHEN 325 MG TABLET PO PRN (14:30)
[2017-05-04] MEDS ORDERED: LABETALOL 5MG/ML, 20ML IV PRN (14:30)
[2017-05-04] MEDS ORDERED: OXYcodone 5 MG/5 ML ORAL.SOL UDC PO PRN (14:30)
[2017-05-04] MEDS ORDERED: hydrALAzine 20 MG/ML, 1ML IV PRN (14:30)
[2017-05-04] MEDS ORDERED: FENTANYL PF 100 MCG/2ML IV PRN (14:30)
[2017-05-04] MEDS ORDERED: MEPERIDINE/PF 25MG/0.5ML IVPush PRN (14:30)
[2017-05-04] MEDS ORDERED: PROMETHAZINE 25 MG/ML, 1ML IV PRN (14:30)
[2017-05-04] MEDS ORDERED: ONDANSETRON 2MG/ML, 2ML IVPush PRN (14:30)
[2017-05-04] MEDS ORDERED: HYDROmorphone 1 MG/ML, 1ML IV PRN (14:30)
[2017-05-04] MEDS ORDERED: HYDROmorphone 2 MG/ML, 1ML ONE (15:07)
[2017-05-04] MEDS: ENOXAPARIN 40 MG/0.4 ML SQ SCH (16:37)
[2017-05-04 19:50] VITALS: BP 152/86
[2017-05-04 20:13] LABS: BLOOD UREA NITROGEN 18 mg/dL (7-18)
[2017-05-05 00:25] VITALS: BP 136/76
[2017-05-05 04:00] VITALS: BP 129/68
[2017-05-05] MEDS: LACTOBACILLUS CHEW TABLET PO SCH ×4 (06:06→21:23)
[2017-05-05] MEDS: CEFAZOLIN PMX 2GM/50ML 50 ML IVPB SCH ×3 (06:06→21:32)
[2017-05-05 07:21] VITALS: BP 134/74
[2017-05-05 07:34] LABS: BLOOD UREA NITROGEN 16 mg/dL (7-18)
[2017-05-05] MEDS: INSULIN ASPART 100 UNITS/ML, PEN SQ-INSULIN SCH ×4 (07:43→21:24)
[2017-05-05] MEDS: AMLODIPINE 5 MG TABLET PO SCH ×2 (08:57→21:23)
[2017-05-05] MEDS: CLOTRIMAZOLE CRM 1%, 15GM TP SCH ×2 (08:58→21:00)
[2017-05-05] MEDS: INSULIN DETEMIR 100 UNITS/ML, PEN SQ-INSULIN SCH ×2 (08:58→21:00)
[2017-05-05 12:58] VITALS: BP 135/85
[2017-05-05] MEDS: ENOXAPARIN 40 MG/0.4 ML SQ SCH (16:22)
[2017-05-05 19:43] VITALS: BP 146/88
[2017-05-06 02:17] VITALS: BP 126/73
[2017-05-06] MEDS: CEFAZOLIN PMX 2GM/50ML 50 ML IVPB SCH ×3 (06:28→21:34)
[2017-05-06] MEDS: LACTOBACILLUS CHEW TABLET PO SCH ×4 (06:28→21:34)
[2017-05-06] MEDS: INSULIN ASPART 100 UNITS/ML, PEN SQ-INSULIN SCH ×4 (06:32→21:34)
[2017-05-06 07:40] VITALS: BP 144/78
[2017-05-06] MEDS: CLOTRIMAZOLE CRM 1%, 15GM TP SCH ×2 (09:00→21:00)
[2017-05-06] MEDS: INSULIN DETEMIR 100 UNITS/ML, PEN SQ-INSULIN SCH ×2 (09:32→21:35)
[2017-05-06] MEDS: AMLODIPINE 5 MG TABLET PO SCH ×2 (09:33→21:34)
[2017-05-06 15:55] VITALS: BP 139/79
[2017-05-06] MEDS: ENOXAPARIN 40 MG/0.4 ML SQ SCH (16:10)
[2017-05-06 19:35] VITALS: BP 144/84
[2017-05-07 02:52] VITALS: BP 131/73
[2017-05-07] MEDS: LACTOBACILLUS CHEW TABLET PO SCH ×4 (06:11→21:49)
[2017-05-07] MEDS: CEFAZOLIN PMX 2GM/50ML 50 ML IVPB SCH ×3 (06:11→21:49)
[2017-05-07] MEDS: INSULIN ASPART 100 UNITS/ML, PEN SQ-INSULIN SCH ×4 (07:00→22:11)
[2017-05-07 07:20] VITALS: BP 140/80
[2017-05-07] MEDS: CLOTRIMAZOLE CRM 1%, 15GM TP SCH ×3 (09:00→21:49)
[2017-05-07] MEDS: INSULIN DETEMIR 100 UNITS/ML, PEN SQ-INSULIN SCH ×2 (10:17→22:12)
[2017-05-07] MEDS: AMLODIPINE 5 MG TABLET PO SCH ×2 (10:18→21:49)
[2017-05-07 13:05] VITALS: BP 118/78
[2017-05-07] MEDS: ENOXAPARIN 40 MG/0.4 ML SQ SCH (17:00)
[2017-05-07 20:20] VITALS: BP 130/71
[2017-05-07 21:48] VITALS: BP 134/70
[2017-05-08 02:35] VITALS: BP 121/63
[2017-05-08] MEDS: CEFAZOLIN PMX 2GM/50ML 50 ML IVPB SCH ×3 (06:19→21:45)
[2017-05-08] MEDS: LACTOBACILLUS CHEW TABLET PO SCH ×4 (06:19→21:45)
[2017-05-08] MEDS ORDERED: PNEUMOCOCCAL 23 VACCINE IM-VACC ONE (07:00)
[2017-05-08] MEDS: INSULIN ASPART 100 UNITS/ML, PEN SQ-INSULIN SCH ×4 (07:06→22:18)
[2017-05-08 08:08] VITALS: BP 132/76
[2017-05-08] MEDS: CLOTRIMAZOLE CRM 1%, 15GM TP SCH ×2 (08:10→21:00)
[2017-05-08] MEDS: AMLODIPINE 5 MG TABLET PO SCH ×2 (08:10→21:45)
[2017-05-08] MEDS: INSULIN DETEMIR 100 UNITS/ML, PEN SQ-INSULIN SCH ×2 (08:14→22:02)
[2017-05-08 14:38] VITALS: BP 149/85
[2017-05-08] MEDS: ENOXAPARIN 40 MG/0.4 ML SQ SCH (16:30)
[2017-05-08] MEDS ORDERED: DEXTROSE 50%, 50ML SYRINGE IVPush PRN (19:30)
[2017-05-08] MEDS ORDERED: PHARMACY MAY ADJ FOR RENAL FX MC PRN (19:30)
[2017-05-08] MEDS ORDERED: DEXTROSE 4 GM TAB.CHEW PO PRN (19:30)
[2017-05-08 20:02] VITALS: BP 161/94
[2017-05-09 03:37] VITALS: BP 125/74
[2017-05-09 05:06] LABS: BLOOD UREA NITROGEN 19 mg/dL (7-18)
[2017-05-09 05:12] LABS: ASPARTATE AMINO TRANSFERASE 22 U/L (15-37)
[2017-05-09 05:13] LABS: C-REACTIVE PROTEIN, QUANT 0.33 mg/dL (0.02-0.49)
[2017-05-09] MEDS: LACTOBACILLUS CHEW TABLET PO SCH ×4 (06:03→22:10)
[2017-05-09] MEDS: CEFAZOLIN PMX 2GM/50ML 50 ML IVPB SCH ×3 (06:03→22:15)
[2017-05-09] MEDS: INSULIN ASPART 100 UNITS/ML, PEN SQ-INSULIN SCH ×4 (07:00→22:29)
[2017-05-09 07:36] VITALS: BP 158/101
[2017-05-09] MEDS: AMLODIPINE 5 MG TABLET PO SCH ×2 (08:32→22:14)
[2017-05-09] MEDS: ERGOCALCIFEROL 50,000 UNIT CAPSULE PO SCH (08:32)
[2017-05-09] MEDS: INSULIN DETEMIR 100 UNITS/ML, PEN SQ-INSULIN SCH ×2 (08:33→22:29)
[2017-05-09] MEDS: CLOTRIMAZOLE CRM 1%, 15GM TP SCH ×2 (09:00→22:13)
[2017-05-09 13:54] VITALS: BP 136/80
[2017-05-09] MEDS: ENOXAPARIN 40 MG/0.4 ML SQ SCH (17:04)
[2017-05-09 19:14] VITALS: BP 156/77
[2017-05-10 00:55] VITALS: BP 114/59
[2017-05-10] MEDS: LACTOBACILLUS CHEW TABLET PO SCH ×4 (06:23→21:40)
[2017-05-10] MEDS: CEFAZOLIN PMX 2GM/50ML 50 ML IVPB SCH ×3 (06:23→21:41)
[2017-05-10] MEDS: INSULIN ASPART 100 UNITS/ML, PEN SQ-INSULIN SCH ×4 (07:00→21:49)
[2017-05-10 07:45] VITALS: BP 148/72
[2017-05-10] MEDS: AMLODIPINE 5 MG TABLET PO SCH ×2 (08:50→21:40)
[2017-05-10] MEDS: INSULIN DETEMIR 100 UNITS/ML, PEN SQ-INSULIN SCH ×2 (08:51→21:50)
[2017-05-10] MEDS: CLOTRIMAZOLE CRM 1%, 15GM TP SCH ×2 (09:00→21:00)
[2017-05-10 15:11] VITALS: BP 155/75
[2017-05-10] MEDS: ENOXAPARIN 40 MG/0.4 ML SQ SCH (16:45)
[2017-05-10 19:45] VITALS: BP 151/79
[2017-05-11 02:58] VITALS: BP 155/75
[2017-05-11] MEDS: LACTOBACILLUS CHEW TABLET PO SCH ×4 (06:09→22:20)
[2017-05-11] MEDS: CEFAZOLIN PMX 2GM/50ML 50 ML IVPB SCH ×3 (06:09→22:21)
[2017-05-11 07:18] VITALS: BP_SYST 170; BP_SYST 175; BP_DIAS 73; BP_DIAS 76
[2017-05-11] MEDS: INSULIN ASPART 100 UNITS/ML, PEN SQ-INSULIN SCH ×4 (07:33→22:32)
[2017-05-11] MEDS: AMLODIPINE 5 MG TABLET PO SCH ×2 (08:49→22:20)
[2017-05-11] MEDS: CLOTRIMAZOLE CRM 1%, 15GM TP SCH ×2 (08:50→21:00)
[2017-05-11] MEDS: INSULIN DETEMIR 100 UNITS/ML, PEN SQ-INSULIN SCH ×2 (08:50→22:32)
[2017-05-11 15:08] VITALS: BP_SYST 169; BP_SYST 174; BP_DIAS 73; BP_DIAS 75
[2017-05-11] MEDS: ENOXAPARIN 40 MG/0.4 ML SQ SCH (16:14)
[2017-05-11 21:41] VITALS: BP 144/85
[2017-05-12 01:46] VITALS: BP 159/77
[2017-05-12] MEDS: CEFAZOLIN PMX 2GM/50ML 50 ML IVPB SCH ×3 (06:32→22:08)
[2017-05-12] MEDS: LACTOBACILLUS CHEW TABLET PO SCH ×4 (06:33→21:08)
[2017-05-12] MEDS: INSULIN ASPART 100 UNITS/ML, PEN SQ-INSULIN SCH ×4 (07:00→21:15)
[2017-05-12 07:39] VITALS: BP 158/71
[2017-05-12] MEDS: AMLODIPINE 5 MG TABLET PO SCH ×2 (08:03→21:08)
[2017-05-12] MEDS: CLOTRIMAZOLE CRM 1%, 15GM TP SCH ×2 (08:04→21:00)
[2017-05-12] MEDS: INSULIN DETEMIR 100 UNITS/ML, PEN SQ-INSULIN SCH ×2 (08:04→21:14)
[2017-05-12 15:38] VITALS: BP 146/92
[2017-05-12] MEDS: ENOXAPARIN 40 MG/0.4 ML SQ SCH (16:40)
[2017-05-12 20:58] VITALS: BP 134/75
[2017-05-13 01:41] VITALS: BP 146/70
[2017-05-13] MEDS: LACTOBACILLUS CHEW TABLET PO SCH ×4 (06:28→21:35)
[2017-05-13] MEDS: CEFAZOLIN PMX 2GM/50ML 50 ML IVPB SCH ×3 (06:28→21:34)
[2017-05-13] MEDS: INSULIN ASPART 100 UNITS/ML, PEN SQ-INSULIN SCH ×4 (06:30→21:46)
[2017-05-13] MEDS: CLOTRIMAZOLE CRM 1%, 15GM TP SCH ×2 (08:39→21:00)
[2017-05-13] MEDS: INSULIN DETEMIR 100 UNITS/ML, PEN SQ-INSULIN SCH ×2 (08:39→21:47)
[2017-05-13] MEDS: AMLODIPINE 5 MG TABLET PO SCH ×2 (08:40→21:35)
[2017-05-13 08:55] VITALS: BP 134/84
[2017-05-13 15:54] VITALS: BP 151/75
[2017-05-13 19:08] VITALS: BP 151/84
[2017-05-14 01:44] VITALS: BP 136/76
[2017-05-14] MEDS: LACTOBACILLUS CHEW TABLET PO SCH ×4 (06:33→21:30)
[2017-05-14] MEDS: INSULIN ASPART 100 UNITS/ML, PEN SQ-INSULIN SCH ×4 (06:36→21:43)
[2017-05-14] MEDS: CEFAZOLIN PMX 2GM/50ML 50 ML IVPB SCH ×3 (06:43→21:31)
[2017-05-14 08:30] VITALS: BP 152/76
[2017-05-14] MEDS: AMLODIPINE 5 MG TABLET PO SCH ×2 (08:33→21:29)
[2017-05-14] MEDS: INSULIN DETEMIR 100 UNITS/ML, PEN SQ-INSULIN SCH ×2 (08:34→21:42)
[2017-05-14] MEDS: CLOTRIMAZOLE CRM 1%, 15GM TP SCH ×2 (08:35→21:00)
[2017-05-14 14:41] VITALS: BP 130/82
[2017-05-14 19:58] VITALS: BP 150/72
[2017-05-15 03:03] VITALS: BP 118/66
[2017-05-15] MEDS: LACTOBACILLUS CHEW TABLET PO SCH ×4 (06:15→22:36)
[2017-05-15] MEDS: CEFAZOLIN PMX 2GM/50ML 50 ML IVPB SCH ×3 (06:15→22:37)
[2017-05-15] MEDS: INSULIN ASPART 100 UNITS/ML, PEN SQ-INSULIN SCH ×4 (06:19→22:52)
[2017-05-15] MEDS: CLOTRIMAZOLE CRM 1%, 15GM TP SCH ×3 (09:00→21:00)
[2017-05-15 09:14] VITALS: BP 140/82
[2017-05-15] MEDS: AMLODIPINE 5 MG TABLET PO SCH ×2 (09:19→22:36)
[2017-05-15] MEDS: INSULIN DETEMIR 100 UNITS/ML, PEN SQ-INSULIN SCH ×2 (09:20→22:52)
[2017-05-15 12:35] LABS: ASPARTATE AMINO TRANSFERASE 22 U/L (15-37); BLOOD UREA NITROGEN 20 mg/dL (7-18); C-REACTIVE PROTEIN, QUANT 0.17 mg/dL (0.02-0.49)
[2017-05-15 14:14] VITALS: BP 140/83
[2017-05-15 20:00] VITALS: BP 168/78
[2017-05-15] MEDS ORDERED: DEXTROSE 4 GM TAB.CHEW PO PRN (20:30)
[2017-05-15] MEDS ORDERED: DEXTROSE 50%, 50ML SYRINGE IVPush PRN (20:30)
[2017-05-15] MEDS ORDERED: GLUCAGON 1 MG IM PRN (20:30)
[2017-05-15] MEDS ORDERED: PHARMACY MAY ADJ FOR RENAL FX MC PRN (20:30)
[2017-05-16 02:24] VITALS: BP 160/71
[2017-05-16] MEDS: CEFAZOLIN PMX 2GM/50ML 50 ML IVPB SCH ×3 (06:09→21:34)
[2017-05-16] MEDS: LACTOBACILLUS CHEW TABLET PO SCH ×4 (06:09→21:34)
[2017-05-16] MEDS: INSULIN ASPART 100 UNITS/ML, PEN SQ-INSULIN SCH ×4 (06:18→21:54)
[2017-05-16 06:51] VITALS: BP 134/75
[2017-05-16] MEDS: ERGOCALCIFEROL 50,000 UNIT CAPSULE PO SCH (08:07)
[2017-05-16] MEDS: AMLODIPINE 5 MG TABLET PO SCH ×2 (08:07→21:34)
[2017-05-16] MEDS: INSULIN DETEMIR 100 UNITS/ML, PEN SQ-INSULIN SCH ×2 (08:08→21:55)
[2017-05-16] MEDS: CLOTRIMAZOLE CRM 1%, 15GM TP SCH ×2 (08:12→21:00)
[2017-05-16 13:42] VITALS: BP 139/71
[2017-05-16 19:44] VITALS: BP 163/75
[2017-05-17] MEDS: LACTOBACILLUS CHEW TABLET PO SCH ×4 (05:32→21:36)
[2017-05-17] MEDS: CEFAZOLIN PMX 2GM/50ML 50 ML IVPB SCH ×3 (05:32→21:36)
[2017-05-17] MEDS: INSULIN ASPART 100 UNITS/ML, PEN SQ-INSULIN SCH ×4 (07:04→21:52)
[2017-05-17 07:44] VITALS: BP 145/83
[2017-05-17] MEDS: CLOTRIMAZOLE CRM 1%, 15GM TP SCH ×2 (09:00→21:00)
[2017-05-17] MEDS: INSULIN DETEMIR 100 UNITS/ML, PEN SQ-INSULIN SCH ×2 (09:23→21:52)
[2017-05-17] MEDS: AMLODIPINE 5 MG TABLET PO SCH ×2 (09:23→21:36)
[2017-05-17 14:15] VITALS: BP 155/76
[2017-05-17 19:35] VITALS: BP 178/85
[2017-05-18 01:14] VITALS: BP 152/83
[2017-05-18] MEDS: LACTOBACILLUS CHEW TABLET PO SCH ×2 (05:34→10:50)
[2017-05-18] MEDS: CEFAZOLIN PMX 2GM/50ML 50 ML IVPB SCH ×2 (05:34→13:45)
[2017-05-18] MEDS: INSULIN ASPART 100 UNITS/ML, PEN SQ-INSULIN SCH ×2 (07:27→10:50)
[2017-05-18 09:04] VITALS: BP 130/91
[2017-05-18] MEDS: CLOTRIMAZOLE CRM 1%, 15GM TP SCH (09:20)
[2017-05-18] MEDS: AMLODIPINE 5 MG TABLET PO SCH (09:20)
[2017-05-18] MEDS: INSULIN DETEMIR 100 UNITS/ML, PEN SQ-INSULIN SCH (09:20)
[2017-05-18] MEDS ORDERED: CEPH-376 PO (10:14)
[2017-05-18] MEDS ORDERED: INSU100I13 SC (10:14)
[2017-05-18] MEDS ORDERED: AMLO5TAB2 PO (10:14)
[2017-05-18 15:54] VITALS: BP 153/81
== END 2017-05-18 16:23 | disposition home or self-care (01) | DRG 853 ==
LOC: ED 15:02 → EDIP 15:04 → ED 15:28 → 3NE 16:16 → 5SO 04-11 18:37 → UNDODISIN 04-13 20:07 → 4NOR 04-13 23:04
PROVIDERS: ADMIT Hospitalist; ATTEND Internal Medicine
PROC: 0JBH0ZZ Excision of Left Lower Arm Subcutaneous Tissue and Fascia, Open Approach (ICD-10-PCS; principal; 2017-04-12 11:00)
PROC: 0JDH0ZZ Extraction of Left Lower Arm Subcutaneous Tissue and Fascia, Open Approach (ICD-10-PCS; 2017-04-14)
PROC: 0JBH0ZZ Excision of Left Lower Arm Subcutaneous Tissue and Fascia, Open Approach (ICD-10-PCS; 2017-04-17)
PROC: 02HV33Z Insertion of Infusion Device into Superior Vena Cava, Percutaneous Approach (ICD-10-PCS; 2017-04-28)
PROC: B5181ZA Fluoroscopy of Superior Vena Cava using Low Osmolar Contrast, Guidance (ICD-10-PCS; 2017-04-28)
PROC: B548ZZA Ultrasonography of Superior Vena Cava, Guidance (ICD-10-PCS; 2017-04-28)
PROC: 3E10X8Z Irrigation of Skin and Mucous Membranes using Irrigating Substance (ICD-10-PCS; 2017-05-04)
DX: A41.9 Sepsis, unspecified organism (principal); E43 Unspecified severe protein-calorie malnutrition; M72.6 Necrotizing fasciitis; E87.1 Hypo-osmolality and hyponatremia; L03.114 Cellulitis of left upper limb; N17.9 Acute kidney failure, unspecified; L02.414 Cutaneous abscess of left upper limb; E11.65 Type 2 diabetes mellitus with hyperglycemia; I10 Essential (primary) hypertension; D63.8 Anemia in other chronic diseases classified elsewhere; I12.9 Hypertensive chronic kidney disease with stage 1 through stage 4 chronic kidney disease, or unspecified chronic kidney disease; E11.22 Type 2 diabetes mellitus with diabetic chronic kidney disease; M60.9 Myositis, unspecified; B95.61 Methicillin susceptible Staphylococcus aureus infection as the cause of diseases classified elsewhere; E11.21 Type 2 diabetes mellitus with diabetic nephropathy; N18.3 Chronic kidney disease, stage 3 (moderate); E66.9 Obesity, unspecified; E55.9 Vitamin D deficiency, unspecified; Z68.38 Body mass index [BMI] 38.0-38.9, adult; Z79.84 Long term (current) use of oral hypoglycemic drugs; Z79.4 Long term (current) use of insulin; Z79.2 Long term (current) use of antibiotics
CPT/HCPCS: 36415; 36569; 71010; 76770; 76937; 77001; 80048; 80053; 80202; 81001; 82040; 82306; 82436; 82550; 82570; 82962; 83036; 83605; 83735; 84100; 84133; 84145; 84300; 84484; 85025; 85610; 85651; 85730; 86140; 87040; 87070; 87075; 87077; 87086; 87147; 87176; 87186; 87205; 87324; 90732; 93005; 96365; 96366; 96375; A9585; J0690; J1170; J1650; J1815; J2250; J2405; J2543; J2550; J2704; J3010; J3370; C1751; J0330; J2370; J7030; J7040; J7050; Q0163

== ENCOUNTER → 2017-05-23 | Outpatient (CLI) | payer OTHER ==
[~2017-05-23] MED LIST: AMLO5TAB2 PO; ASPI-496 PO; CEPH-376 PO; ENAL5TAB PO; INSU100I13 SC; METF500T4 PO
== END | disposition home or self-care (01) ==
LOC: WOUND 10:20
PROVIDERS: ATTEND Internal Medicine Cardiovascular Disease
DX: T81.89XA Other complications of procedures, not elsewhere classified, initial encounter (principal); M72.6 Necrotizing fasciitis; I10 Essential (primary) hypertension; E11.22 Type 2 diabetes mellitus with diabetic chronic kidney disease; I12.9 Hypertensive chronic kidney disease with stage 1 through stage 4 chronic kidney disease, or unspecified chronic kidney disease; N18.3 Chronic kidney disease, stage 3 (moderate); E66.9 Obesity, unspecified; Z68.38 Body mass index [BMI] 38.0-38.9, adult; B95.61 Methicillin susceptible Staphylococcus aureus infection as the cause of diseases classified elsewhere; E43 Unspecified severe protein-calorie malnutrition; E11.21 Type 2 diabetes mellitus with diabetic nephropathy; Z79.2 Long term (current) use of antibiotics; Z79.84 Long term (current) use of oral hypoglycemic drugs; Z79.4 Long term (current) use of insulin; Y92.89 Other specified places as the place of occurrence of the external cause; Y83.8 Other surgical procedures as the cause of abnormal reaction of the patient, or of later complication, without mention of misadventure at the time of the procedure
CPT/HCPCS: 97602; 99215

== ENCOUNTER → 2017-05-30 | Outpatient (CLI) | payer OTHER | END | disposition home or self-care (01) | LOC: WOUND 11:23 | PROVIDERS: ATTEND Physician Assistant | DX: T81.31XD Disruption of external operation (surgical) wound, not elsewhere classified, subsequent encounter (principal); M72.6 Necrotizing fasciitis; E11.628 Type 2 diabetes mellitus with other skin complications; I10 Essential (primary) hypertension; Z68.38 Body mass index [BMI] 38.0-38.9, adult; E11.22 Type 2 diabetes mellitus with diabetic chronic kidney disease; I12.9 Hypertensive chronic kidney disease with stage 1 through stage 4 chronic kidney disease, or unspecified chronic kidney disease; N18.3 Chronic kidney disease, stage 3 (moderate); Z79.2 Long term (current) use of antibiotics; Z79.4 Long term (current) use of insulin; Z79.84 Long term (current) use of oral hypoglycemic drugs; Z86.14 Personal history of Methicillin resistant Staphylococcus aureus infection; E66.9 Obesity, unspecified; E11.21 Type 2 diabetes mellitus with diabetic nephropathy; E43 Unspecified severe protein-calorie malnutrition; Y83.8 Other surgical procedures as the cause of abnormal reaction of the patient, or of later complication, without mention of misadventure at the time of the procedure | CPT/HCPCS: 97597 ==

== ENCOUNTER → 2017-06-06 | Outpatient (CLI) | payer OTHER | END | disposition home or self-care (01) | LOC: WOUND 11:00 | PROVIDERS: ATTEND Physician Assistant | DX: T81.31XD Disruption of external operation (surgical) wound, not elsewhere classified, subsequent encounter (principal); M72.6 Necrotizing fasciitis; E11.628 Type 2 diabetes mellitus with other skin complications; I10 Essential (primary) hypertension; Z86.14 Personal history of Methicillin resistant Staphylococcus aureus infection; E11.22 Type 2 diabetes mellitus with diabetic chronic kidney disease; I12.9 Hypertensive chronic kidney disease with stage 1 through stage 4 chronic kidney disease, or unspecified chronic kidney disease; N18.3 Chronic kidney disease, stage 3 (moderate); Z79.84 Long term (current) use of oral hypoglycemic drugs; E11.21 Type 2 diabetes mellitus with diabetic nephropathy; E43 Unspecified severe protein-calorie malnutrition; Z79.2 Long term (current) use of antibiotics; Z79.4 Long term (current) use of insulin; Z68.38 Body mass index [BMI] 38.0-38.9, adult; Y83.8 Other surgical procedures as the cause of abnormal reaction of the patient, or of later complication, without mention of misadventure at the time of the procedure | CPT/HCPCS: 17250 ==

== ENCOUNTER → 2017-06-13 | Outpatient (CLI) | payer OTHER | END | disposition home or self-care (01) | LOC: WOUND 10:41 | PROVIDERS: ATTEND Physician Assistant | DX: T81.31XD Disruption of external operation (surgical) wound, not elsewhere classified, subsequent encounter (principal); E11.40 Type 2 diabetes mellitus with diabetic neuropathy, unspecified; E11.65 Type 2 diabetes mellitus with hyperglycemia; M72.6 Necrotizing fasciitis; E66.9 Obesity, unspecified; E43 Unspecified severe protein-calorie malnutrition; I10 Essential (primary) hypertension; Z68.38 Body mass index [BMI] 38.0-38.9, adult; Y83.8 Other surgical procedures as the cause of abnormal reaction of the patient, or of later complication, without mention of misadventure at the time of the procedure | CPT/HCPCS: 99213 ==